=== PATIENT | female | born 1970 | race Caucasian/White ===

== ENCOUNTER → 2016-08-02 | Outpatient (CLI) | payer BC ==
[~2016-08-02] MED LIST: AMX500 PO; BENZ100C84 PO; HYDR5SYP11 PO; LEVO112T4 PO; SYN100 PO
--- NOTE | 2016-08-02 15:00 | DIAGNOSTIC IMAGING REPORT ---
KUB CLINICAL HISTORY: Abdominal bloating. COMPARISON STUDY: None. FINDINGS: The bowel gas pattern is normal. Pelvic calcifications statistically represent phleboliths. There is a mild to moderate amount of stool within the colon and rectum. IMPRESSION: No evidence for a bowel obstruction. Electronically signed by: Regulo Herrera M.D. 08/02/2016 2:58 PM Dictated Date/Time: 08/02/2016 2:57 PM
== END | disposition home or self-care (01) ==
LOC: C.RAD1850 14:29
PROVIDERS: ATTEND Registered Nurse
DX: R14.0 Abdominal distension (gaseous) (principal)

== ENCOUNTER 2016-08-17 19:53 | Emergency (ER) | payer BC ==
[~2016-08-17] VITALS: Ht 165.1 cm; Wt 93.5 kg
[~2016-08-17 19:53] MED LIST changes: -BENZ100C84 PO; -HYDR5SYP11 PO; -LEVO112T4 PO
[2016-08-17 20:04] VITALS: TEMP 36.4; Ht 165.1 cm; Wt 93.5 kg
[2016-08-17] MEDS ORDERED: SODIUM CHLORIDE 0.9% 1000ML 1,000 ML IV STA (20:21)
[2016-08-17] MEDS ORDERED: ONDANSETRON INJ 2 MG/ML 2 ML VIAL IV STA (20:21)
[2016-08-17 20:33] LABS: BASO % 0.2 %; BASO ABS # 0.02 K/uL (0-0.2); COMPLETE YES; EOS % 1.7 %; HEMATOCRIT 39.4 % (37-47); IG% 0.2 %; LYMPH ABS # 2.02 K/uL (1.2-3.4); MEAN CELL VOLUME 95.6 fL (80-100); MEAN CORPUSCULAR HEMOGLOBIN 33.5 pg (25-34); MEAN PLATELET VOLUME 11.8 fL (7.4-10.4); MONO % 8.2 %; NEUT % 69.7 %; PLATELET COUNT 196 K/uL (130-400); RED BLOOD COUNT 4.12 M/uL (4.2-5.4); WHITE BLOOD COUNT 10.12 K/uL (4.8-10.8)
[2016-08-17] MEDS ORDERED: LEVO112T4 PO (20:37)
--- NOTE | 2016-08-17 20:38 | EMERGENCY ROOM VISIT NOTE ---
History Report prepared by Rickie: Mohan Tovar Under the Supervision of: Dr. Todd Edwards D.O. First contact with patient: 20:07 Chief Complaint: SYNCOPE Stated Complaint: NAUSEA, VOMITING, SYNCOPE, HEAD PAIN, DIZZINESS History of Present Illness The patient is a 46 year old female who presents to the Emergency Room due to a syncopal event that occurred two hours prior to arrival. Per the patient's , they were diving home from a car dealership when the patient began to feel very hot and flushed. Immediately following this, the patient's right leg went numb. The patient states that the right leg was "very heavy" and felt like "pins and needles" were running through the entire leg. The patient then passed out. Her tried to wake her multiple times but the patient would not respond. She remained unresponsive for roughly one minute, she awoke when the pulled off to the side of the road and called for an ambulance. After the episode the patient noted that she felt two sharp and sudden pains in the side of her head at 1846 this evening. The patient currently has a headache and is nauseous. She denies any seizure activity, chest pain, or difficulty breathing before/after/during the episode. The patient has no cardiac family history. Source of History: patient, spouse/significant other Onset: 2 hours [employer] Position: other (Global) Quality: other (Syncopal Episode) Associated Symptoms: + headache, + nausea, No SOB, No chest pain Review of Systems See HPI for pertinent positives & negatives. A total of 10 systems reviewed and were otherwise negative. Past Medical & Surgical No pertinent past medical/surgical histories. Family History No pertinent family histories were discussed. Social History Marital Status: Housing Status: lives with significant other Occupation Status: employed Current/Historical Medications Scheduled Levothyroxine Sodium (Levothyroxine Sodium), 112 MCG PO DAILY Scheduled PRN Benzonatate (Tessalon Perles), 100 MG PO UD PRN for Cough Hydrocodone W/ Homatropine (Hycodan 5/1.5MG 5 Ml), 5 ML PO Q4H PRN for Cough Allergies Coded Allergies: Azithromycin (Verified Allergy, Unknown, GI SYMPTOMS, 04/22/15) Physical Exam Vital Signs Date Time Temp Pulse Resp B/P Pulse Ox O2 Delivery O2 Flow Rate FiO2 08/17/16 23:05 86 18 123/74 97 Room Air 08/17/16 20:43 96 Room Air 08/17/16 20:43 95 121/72 108 131/75 106 133/90 08/17/16 20:04 36.4 99 22 129/77 96 Room Air 08/17/16 20:04 Room Air 08/17/16 20:02 94 Physical Exam GENERAL: Patient is awake, alert, and in no acute distress. Patient is resting comfortably and showing no signs of anxiety EYES: The conjunctivae are clear. The pupils are round and reactive. EARS, NOSE, MOUTH AND THROAT: The nose is without any evidence of any deformity. Mucous membranes are moist tongue is midline NECK: The neck is nontender and supple. RESPIRATORY: Normal respiratory effort is noted there is no evidence of wheezing rhonchi or rales CARDIOVASCULAR: Regular rate and rhythm noted there no murmurs rubs or gallops normal S1 normal S2 GASTROINTESTINAL: The abdomen is soft. Bowel sounds are present in all quadrants. Abdomen is nontender MUSCULOSKELETAL/EXTREMITIES: There is no evidence of gross deformity full range of motion is noted in the hips and shoulders SKIN: There is no obvious evidence of any rash. There are no petechiae, pallor or cyanosis noted. NEUROLOGIC: Patient is awake alert and oriented x3 strength is symmetric patellar reflexes are 2+ bilaterally Medical Decision & Procedures ER Provider Diagnostic Interpretation: X ray results and stated below per my interpretation and radiology interpretation. Other radiology results per my review and radiologist interpretation: CHEST ONE VIEW PORTABLE CLINICAL HISTORY: Altered mental status. Weakness. COMPARISON STUDY: No previous studies for comparison. FINDINGS: The lung volumes are normal. Lungs are clear. Pulmonary vascularity is normal. Cardiac size is normal. Mediastinal contours are unremarkable. There is no evidence of pulmonary edema. No pneumothorax or pleural effusion is identified. IMPRESSION: No acute cardiopulmonary findings. Electronically signed by: Regulo Herrera M.D. 08/17/2016 8:37 PM Dictated Date/Time: 08/17/2016 8:[address] OF THE HEAD WITHOUT CONTRAST CLINICAL HISTORY: Syncope, headache, dizziness and vomiting. COMPARISON STUDY: No previous studies for comparison. CT DOSE: 537.48 mGy.cm TECHNIQUE: Helical axial images of the head were obtained without IV contrast. Automated exposure control was utilized for the study. FINDINGS: No acute intracranial hemorrhage, midline shift or mass effect is present. Brain volume is normal. Ventricular system is normal. The basilar cisterns are patent. There are no extra-axial collections. Willis-white differentiation is maintained. There are no findings to suggest acute dural sinus thrombosis or acute territorial infarct. Visualized portions of the sinuses and the mastoid air cells are clear. There are no calvarial abnormalities. IMPRESSION: No acute intracranial findings. Electronically signed by: Regulo Herrera M.D. 08/17/2016 8:59 PM Dictated Date/Time: 08/17/2016 8:57 PM Laboratory Results 08/17/16 20:12 Red Blood Count 4.12, Mean Corpuscular Volume 95.6, Mean Corpuscular Hemoglobin 33.5, Mean Corpuscular Hemoglobin Concent 35.0, Mean Platelet Volume 11.8, Neutrophils (%) (Auto) 69.7, Lymphocytes (%) (Auto) 20.0, Monocytes (%) (Auto) 8.2, Eosinophils (%) (Auto) 1.7, Basophils (%) (Auto) 0.2, Neutrophils # (Auto) 7.06, Lymphocytes # (Auto) 2.02, Monocytes # (Auto) 0.83, Eosinophils # (Auto) 0.17, Basophils # (Auto) 0.02 08/17/16 20:12 Test 08/17/16 20:12 08/17/16 20:38 08/17/16 22:30 White Blood Count 10.12 K/uL (4.8-10.8) Red Blood Count 4.12 M/uL (4.2-5.4) Hemoglobin 13.8 g/dL (12.0-16.0) Hematocrit 39.4 % (37-47) Mean Corpuscular Volume 95.6 fL (80-100) Mean Corpuscular Hemoglobin 33.5 pg (25-34) Mean Corpuscular Hemoglobin Concent 35.0 g/dl (32-36) Platelet Count 196 K/uL (130-400) Mean Platelet Volume 11.8 fL (7.4-10.4) Neutrophils (%) (Auto) 69.7 % Lymphocytes (%) (Auto) 20.0 % Monocytes (%) (Auto) 8.2 % Eosinophils (%) (Auto) 1.7 % Basophils (%) (Auto) 0.2 % Neutrophils # (Auto) 7.06 K/uL (1.4-6.5) Lymphocytes # (Auto) 2.02 K/uL (1.2-3.4) Monocytes # (Auto) 0.83 K/uL (0.11-0.59) Eosinophils # (Auto) 0.17 K/uL (0-0.5) Basophils # (Auto) 0.02 K/uL (0-0.2) RDW Standard Deviation 43.3 fL (36.4-46.3) RDW Coefficient of Variation 12.5 % (11.5-14.5) Immature Granulocyte % (Auto) 0.2 % Immature Granulocyte # (Auto) 0.02 K/uL (0.00-0.02) Erythrocyte Sedimentation Rate 4 mm/hr (0-21) Prothrombin Time 10.3 SECONDS (9.0-12.0) Prothromb Time International Ratio 1.0 (0.9-1.1) Activated Partial Thromboplast Time 23.0 SECONDS (21.0-31.0) Partial Thromboplastin Ratio 0.9 Anion Gap 11.0 mmol/L (3-11) Est Creatinine Clear Calc Drug Dose 124.8 ml/min Estimated GFR () 125.1 Estimated GFR (Non- 108.0 BUN/Creatinine Ratio 20.5 (10-20) Calcium Level 8.7 mg/dl (8.5-10.1) Magnesium Level 1.9 mg/dl (1.8-2.4) Total Bilirubin 0.4 mg/dl (0.2-1) Direct Bilirubin 0.1 mg/dl (0-0.2) Aspartate Amino Transf (AST/SGOT) 12 U/L (15-37) Alanine Aminotransferase (ALT/SGPT) 16 U/L (12-78) Alkaline Phosphatase 59 U/L (45-117) Total Creatine Kinase 45 U/L (26-192) Creatine Kinase MB < 0.5 ng/ml (0.5-3.6) Creatine Kinase MB Ratio (0-3.0) Troponin I < 0.015 ng/ml (0-0.045) C-Reactive Protein < 0.29 mg/dl (0-0.29) Total Protein 6.9 gm/dl (6.4-8.2) Albumin 4.2 gm/dl (3.4-5.0) Lipase 125 U/L (73-393) Thyroid Stimulating Hormone (TSH) 1.290 uIu/ml (0.300-4.500) Human Chorionic Gonadotropin, Qual NEG (NEG) Bedside Glucose 89 mg/dl (70-90) Urine Color YELLOW Urine Appearance CLEAR (CLEAR) Urine pH 5.0 (4.5-7.5) Urine Specific [place] 1.011 (1.000-1.030) Urine Protein NEG (NEG) Urine Glucose (UA) NEG (NEG) Urine Ketones NEG (NEG) Urine Occult Blood NEG (NEG) Urine Nitrite NEG (NEG) Urine Bilirubin NEG (NEG) Urine Urobilinogen NEG (NEG) Urine Leukocyte Esterase NEG (NEG) Laboratory results per my review. Medications Administered Medications (Trade) Dose Ordered Sig/Cyndi Route Start Time Stop Time Status Last Admin Dose Admin Ondansetron HCl 4 mg 4 mg NOW STAT IV 08/17/16 20:21 08/17/16 20:23 DC 08/17/16 20:36 4 MG Sodium Chloride (Nss 1000ml) 1,000 ml @ 999 mls/hr Q1H1M STAT IV 08/17/16 20:21 08/17/16 21:21 DC 08/17/16 20:36 999 MLS/HR ECG Indication: syncope Rate (beats per minute): 85 Findings: nonspecific-ST abn, no ectopy Comparison ECG Date: no prior available ED Course 2015: The patient was evaluated in room C10. A complete history and physical examination were performed. 2020: Sodium Chloride 1000 mL @ 999 mL/hr IV, Zofran 4 mg IV. 2216: I reevaluated the patient at this time. She was resting in bed. 2305: Upon reevaluation, the patient is resting comfortably and feeling better . I discussed the results and treatment plan with her. She verbalized agreement of the treatment plan. The patient was discharged home. Medical Decision The patient's history was concerning for syncope. Differential diagnosis: Etiologies such as vasovagal event, infection, hypoglycemia, electrolyte abnormalities, cardiac sources, intracerebral event, toxicologic, neurologic, as well as others were entertained. Nursing notes reviewed. Additional history is obtained from the patient's significant. The patient is a 46-year-old female who presented to the emergency department for an evaluation after having a syncopal episode. The patient did not have chest pain or shortness of breath. She was not hypoxic. She did not have sustained tachycardia but did have tachycardia when evaluating for orthostatic vital signs. The patient did not have a focal neurologic deficit. The patient was treated with IV fluids in the emergency department. She was also given IV Zofran. On subsequent reevaluation she was feeling much better. I discussed the patient's laboratory and radiographic studies with her. She was encouraged to continue all medications as prescribed and rest. She was also encouraged to avoid any strenuous activity. I also recommended that she follow-up with her primary care physician since possible for further evaluation and for possible further testing such as echocardiogram or Holter monitor. Otherwise she was encouraged to return to the emergency Department immediately if symptoms change worsen or if the need arises. Impression Primary Impression: Syncope Scribe Attestation The scribe's documentation has been prepared under my direction and personally reviewed by me in its entirety. I confirm that the note above accurately reflects all work, treatment, procedures, and medical decision making performed by me. Departure Information Dispostion Home / Self-Care Referrals Todd Harrison M.D. (PCP) Forms HOME CARE DOCUMENTATION FORM, IMPORTANT VISIT INFORMATION Patient Instructions My [facility] Additional Instructions Call your family to schedule a follow-up appointment. You may require further studies such as an echocardiogram and a Holter monitor to further evaluate the cause of your passing out. Return to the emergency department immediately if symptoms change worsen or the need arises.
[2016-08-17] MEDS ORDERED: BENZ100C84 PO (20:39)
[2016-08-17] MEDS ORDERED: HYDR5SYP11 PO (20:39)
[2016-08-17 20:41] LABS: ALT/SGPT 16 U/L (12-78); BLOOD UREA NITROGEN 13 mg/dl (7-18); BUN/CREATININE RATIO 20.5 (10-20); C-REACTIVE PROTEIN < 0.29 mg/dl (0-0.29); CALCIUM 8.7 mg/dl (8.5-10.1); CARBON DIOXIDE 23 mmol/L (21-32); CHLORIDE 107 mmol/L (98-107); CREATININE 0.65 mg/dl (0.60-1.20); GLUCOSE 103 mg/dl (70-99); MAGNESIUM 1.9 mg/dl (1.8-2.4); POTASSIUM 3.8 mmol/L (3.5-5.1); SODIUM 141 mmol/L (136-145)
[2016-08-17 20:43] VITALS: O2SAT 96
[2016-08-17 20:48] LABS: PARTIAL THROMBOPLASTIN RATIO 0.9; PROTHROMBIN TIME (PATIENT) 10.3 SECONDS (9.0-12.0)
[2016-08-17 20:50] LABS: ALKALINE PHOSPHATASE 59 U/L (45-117); AST/SGOT 12 U/L (15-37)
[2016-08-17 20:55] LABS: PREG INTERNAL NEGATIVE QC NEG CLEAR BACKGROUND; PREG INTERNAL POSITIVE QC POS CONTROL LINE
--- NOTE | 2016-08-17 21:01 | DIAGNOSTIC IMAGING REPORT ---
CT OF THE HEAD WITHOUT CONTRAST CLINICAL HISTORY: Syncope, headache, dizziness and vomiting. COMPARISON STUDY: No previous studies for comparison. CT DOSE: 537.48 mGy.cm TECHNIQUE: Helical axial images of the head were obtained without IV contrast. Automated exposure control was utilized for the study. FINDINGS: No acute intracranial hemorrhage, midline shift or mass effect is present. Brain volume is normal. Ventricular system is normal. The basilar cisterns are patent. There are no extra-axial collections. Willis-white differentiation is maintained. There are no findings to suggest acute dural sinus thrombosis or acute territorial infarct. Visualized portions of the sinuses and the mastoid air cells are clear. There are no calvarial abnormalities. IMPRESSION: No acute intracranial findings. Electronically signed by: Regulo Herrera M.D. 08/17/2016 8:59 PM Dictated Date/Time: 08/17/2016 8:57 PM
[2016-08-17 22:57] LABS: URINE APPEARANCE CLEAR (CLEAR); URINE BILIRUBIN NEG (NEG); URINE COLOR YELLOW; URINE NITRITE NEG (NEG); URINE SPECIFIC GRAVITY 1.011 (1.000-1.030); UROBILINOGEN NEG (NEG)
[2016-08-17 22:58] LABS: MANUAL MICROSCOPIC REQUIRED? NO; REVIEW REQ? NO
[2016-08-17 23:05] VITALS: BP 123/74; PULSE 86; O2SAT 97
== END 2016-08-17 23:32 | disposition home or self-care (01) ==
LOC: EDBD 19:53 → C.EDC 19:57
DX: R55 Syncope and collapse (principal); R51 Headache; R11.0 Nausea; Z79.899 Other long term (current) drug therapy

== ENCOUNTER → 2016-11-03 | Outpatient (CLI) | payer BC ==
[~2016-11-03] MED LIST changes: -AMX500 PO; +BENZ100C84 PO; +HYDR5SYP11 PO; +LEVO112T4 PO; -SYN100 PO
== END | disposition home or self-care (01) ==
LOC: C.PAPS 14:07
PROVIDERS: ATTEND Obstetrics & Gynecology
DX: Z01.419 Encounter for gynecological examination (general) (routine) without abnormal findings (principal)

== ENCOUNTER → 2017-04-18 | Outpatient (CLI) | payer BC ==
--- NOTE | 2017-04-19 07:54 | MAMMOGRAPHY REPORT ---
BILATERAL DIGITAL SCREENING MAMMOGRAM TOMOSYNTHESIS WITH CAD: 04/18/2017 CLINICAL HISTORY: Routine screening. Patient has no complaints. TECHNIQUE: Breast tomosynthesis in addition to standard 2D mammography was performed. Current study was also evaluated with a Computer Aided Detection (CAD) system. COMPARISON: Comparison is made to exams dated: 04/14/2016 mammogram, 04/10/2015 mammogram, 04/09/2014 m ammogram, 03/23/2013 ultrasound, 03/23/2013 mammogram, and 03/12/2013 mammogram - [facility]. BREAST COMPOSITION: The tissue of both breasts is heterogeneously dense, which may obscure small mas ses. FINDINGS: There are diffuse bilateral benign-appearing microcalcifications and a benign appearing ci rcumscribed mass in the right upper outer quadrant which most likely represents a fluctuating cyst. No suspicious spiculated or irregular mass, architectural distortion or cluster of suspicious microca lcifications is seen. IMPRESSION: ACR BI-RADS CATEGORY 2: BENIGN There is no mammographic evidence of malignancy. A 1 year screening mammogram is recommended. The pa tient will receive written notification of the results. Approximately 10% of breast cancers are not detected with mammography. A negative mammographic report should not delay biopsy if a clinically suggestive mass is present. Roseline Lee M.D. ay/:04/18/2017 20:52:15 Building Services Supervisor: Debo HAM(R)(M), [facility] letter sent: Normal 1/2 BI-RADS Code: ACR BI-RADS Category 2: Benign
== END | disposition home or self-care (01) ==
LOC: C.MAMM 07:10
PROVIDERS: ATTEND Internal Medicine
DX: Z12.31 Encounter for screening mammogram for malignant neoplasm of breast (principal)

== ENCOUNTER → 2017-11-25 | Outpatient (CLI) | payer OTHER | END | disposition home or self-care (01) | LOC: C.PAPS 11:55 | PROVIDERS: ATTEND Obstetrics & Gynecology | DX: Z01.419 Encounter for gynecological examination (general) (routine) without abnormal findings (principal) ==

== ENCOUNTER → 2018-02-16 | Outpatient (CLI) | payer OTHER ==
--- NOTE | 2018-02-16 09:04 | DIAGNOSTIC IMAGING REPORT ---
BILIARY ABDOMEN LIMITED CLINICAL HISTORY: R14.0 Abdominal [id number] Abdominal pain of multiple sitesR1 TECHNIQUE: Ultrasound COMPARISON STUDY: 11/01/2013 FINDINGS: Normal gallbladder. Common bile duct 3 mm. Liver is uniform. Pancreas and right kidney are unremarkable. 2 cm right renal midpole cyst. IMPRESSION: Small right renal cyst. Otherwise negative study. The above report was generated using voice recognition software. It may contain grammatical, syntax or spelling errors. Electronically signed by: Francois Leal M.D. 02/16/2018 8:54 AM Dictated Date/Time: 02/16/2018 8:53 AM
== END | disposition home or self-care (01) ==
LOC: C.ULTR 08:11
PROVIDERS: ATTEND Registered Nurse
DX: R14.0 Abdominal distension (gaseous) (principal); R10.9 Unspecified abdominal pain; R11.0 Nausea; R12 Heartburn; N28.1 Cyst of kidney, acquired